=== PATIENT | male | born 1955 | race Caucasian/White ===

== ENCOUNTER 2017-02-04 20:18 | Inpatient (IN) ==
[2017-02-04] MEDS ORDERED: *HR* Morphine 2 MG/ML SYRINGE IVP ONE (20:57)
[2017-02-04] MEDS ORDERED: Ondansetron 4 MG/2 ML VIAL IVP ONE (20:57)
[2017-02-04] MEDS ORDERED: 0.9 % Sodium Chloride 1,000 ML IVC ONE (20:57)
--- NOTE | 2017-02-04 21:00 | Emergency Department Note ---
Disposition Clinical Impression: Abdominal pain Disposition: Still a Patient Referrals: Cj Garcia MD [Primary Care Provider] - Forms: Work/School Release, ED Satisfaction Letter Abdominal Pain HPI - General Chief Complaint: ED Abdominal Pain Stated Complaint: abdominal pain chemo pt prostate ca /to bones Time Seen by Provider: 02/04/17 20:24 Source: patient Mode of arrival: ambulatory Limitations: no limitations Nursing Notes Reviewed: Yes Vital Signs Reviewed: Yes - History of Present Illness HPI Narrative: 61-year-old with a history of stage IV prostate cancer in a process being treated comes in with increasing abdominal pain. States he has severe crampy abdominal pain across his lower abdomen. Pt Subjective Complaint: abdominal pain Onset (ago): day(s) Consistency: intermittent Location: diffuse Pain Severity: moderate, severe Pain Scale: 6 Quality: cramping, aching Radiation: none Migration to: no migration Improves with: nothing Worsens with: nothing - Related Data Home Medications Medication Instructions Recorded Confirmed Omeprazole 20 mg PO DAILY 11/15/16 01/26/17 Polyethylene Glycol 3350 [MiraLAX 1 scoop PO DAILY PRN 01/14/17 01/26/17 Powder Bulk 17.9 Oz] Previous Rx's Medication Instructions Recorded Cyclobenzaprine [Flexeril] 10 mg PO TID PRN #90 tablet 12/15/16 Morphine Sulfate SR (12 HR) [MS 30 mg PO TID #90 tablet.er 12/17/16 Contin] Oxycodone HCl/Acetaminophen 1 each PO Q6H PRN #90 tablet 12/28/16 [Percocet 10-325 mg Tablet] Bicalutamide [Casodex] 50 mg PO DAILY #30 tablet 01/14/17 Calcium Carbonate/Vitamin D3 1 each PO BID #60 tablet 01/14/17 [Calcium 600 + Vit D Tablet] Dexamethasone [Decadron] 2 tab PO BID #60 tablet 01/14/17 Docusate [Colace] 100 mg PO BID #60 capsule 01/14/17 Ondansetron HCl [Zofran] 4 mg PO Q6H PRN #30 tablet 01/14/17 Prochlorperazine Maleate 10 mg PO Q6HR PRN #60 tablet 01/14/17 [Compazine] predniSONE [PredniSONE] 5 mg PO BIDWM #60 tablet 01/14/17 Lidocaine/Prilocaine [Emla] 1 appl TP AD #30 gm 01/26/17 Allergies Allergy/AdvReac Type Severity Reaction Status Date / Time No Known Allergies Allergy Verified 01/26/17 15:55 All systems ED: reviewed and negative except as stated. Constitutional: Denies: fever, chills, weakness, weight change Eyes: Denies: eye pain, eye discharge, vision change ENT ED: Denies: ear pain, throat pain, dental pain, hearing loss, epistaxis, congestion, dysphagia Cardiovascular: Denies: chest pain, palpitations, dyspnea on exertion, edema, syncope Respiratory: Denies: cough, dyspnea, wheezes, hemoptysis, stridor Gastrointestinal: Reports: abdominal pain. Denies: nausea, vomiting, diarrhea, constipation, hematemesis, melena, hematochezia Genitourinary: Denies: urgency, dysuria, frequency, hematuria Musculoskeletal: Denies: back pain, neck pain, arthralgia, myalgia Integumentary: Denies: rash, abrasion, lesions Neurological: Denies: headache, weakness, numbness, paresthesias, confusion, abnormal gait, vertigo Psychiatric: Denies: anxiety, depression, suicidal thoughts, homicidal thoughts , auditory hallucinations, visual hallucinations Endocrine: Denies: fatigue Hematological/Lymphatic: Denies: easy bleeding, easy bruising Allergic/Immunologic: Denies: facial swelling, urticaria Abdominal Pain PMH - Past Medical History Medical history: Reports: other Male Surgical History: Reports: cholecystectomy Psychiatric history: Reports: no psych history - Social History Smoking status: Current every day smoker Alcohol use: Reports: none Drug use: Reports: none Physical Exam - General Limitations: no limitations General appearance: alert, in no apparent distress - Head Head exam: atraumatic, normocephalic, normal inspection - Eye Eye exam: Present: normal appearance, PERRL, EOMI - ENT ENT exam: normal exam, normal oropharynx, mucous membranes moist - Neck Neck exam: Present: normal inspection, full ROM, trachea midline - Chest Chest inspection: Present: normal inspection, symmetric chest wall rise - Respiratory Respiratory exam: Present: normal lung sounds bilaterally - Abdominal Exam Abdominal exam: Present: tenderness. Absent: guarding, rebound - Extremities Exam Extremities exam: Present: normal inspection, full ROM. Absent: tenderness, pedal edema - Expanded Lower Extremity Exam Neurovascular/Tendon exam: Absent: motor deficit, sensory deficit, tendon deficit Gait: observed and normal - Back Exam Back exam: Present: normal inspection - Neurological Exam Neurological exam: Present: alert, oriented X3 - Psychiatric Psychiatric exam: Present: normal affect, normal mood - Skin Skin exam: Present: warm, dry, intact, normal color Course Vital Signs Temperature 97.5 F L 02/04/17 20:19 Pulse Rate 89 02/04/17 20:19 Respiratory Rate 18 02/04/17 20:19 Blood Pressure 126/88 02/04/17 20:19 O2 Sat by Pulse Oximetry 98 02/04/17 20:19 Temperature 97.5 F L 02/04/17 20:19 Pulse Rate 89 02/04/17 20:19 Respiratory Rate 18 02/04/17 20:19 Blood Pressure 126/88 02/04/17 20:19 O2 Sat by Pulse Oximetry 98 02/04/17 20:19 Oxygen Delivery Oxygen Delivery Room Air Abdominal Pain - Lab Data Result diagrams: 02/04/17 21:15 02/04/17 21:15 Lab Results 02/04/17 02/04/17 02/04/17 Range/Units 21:10 21:15 21:15 WBC 1.9 L (4.3-11.1) K/mcL RBC 4.95 (4.19-5.50) M/mcL Hgb 14.7 (12.9-16.9) g/dL Hct 42.5 (37.5-50.1) % MCV 85.9 (83.0-100.0) fL MCH 29.7 (28.0-33.3) pg MCHC 34.6 (31.6-35.5) g/dL RDW 14.1 (11.5-14.5) % Plt Count 151 (140-400) K/mcL MPV 9.4 (9.4-12.4) fL Immature Gran % 7.2 H (0-4) % Seg Neutrophils % 8.8 % Lymphocytes % 39.2 % Monocytes % 42.3 % Eosinophils % 1.0 % Basophils % 1.5 % Neutrophils # 0.2 L (1.6-8.9) K/mcL Lymphocytes # 0.7 (0.6-4.6) K/mcL Monocytes # 0.8 (0.0-1.3) K/mcL Eosinophils # 0.0 (0.0-0.6) K/mcL Basophils # 0.0 (0.0-0.2) K/mcL Sodium 138 (136-145) mEq/L Potassium 3.8 (3.5-4.5) mEq/L Chloride 105 (98-109) mEq/L Carbon Dioxide 24 (19-29) mEq/L BUN 16 (8-26) mg/dL Creatinine 0.79 (0.72-1.25) mg/dL Est GFR ( Amer) > 60 (> 60) Est GFR (Non-Af Amer) > 60 (> 60) BUN/Creatinine Ratio 20 (6-26) Glucose 144 H (70-99) mg/dL Calculated Osmolality 290 (280-300) Lactic Acid (0.5-2.2) mmol/L Calcium 8.4 L (8.6-10.8) mg/dL Total Bilirubin 0.4 (0.2-1.2) mg/dL Direct Bilirubin 0.2 (0.0-0.5) mg/dL Indirect Bilirubin 0.2 (0.0-1.2) mg/dL AST 13 (5-34) Units/L ALT 35 (0-55) Units/L Alkaline Phosphatase 132 H (38-126) Units/L Serum Total Protein 6.4 (6.0-8.3) g/dL Albumin 3.4 L (3.5-5.0) g/dL Globulin 3.0 (2.4-3.5) g/dL Albumin/Globulin Ratio 1.1 (1.1-2.2) Amylase 29 (25-125) Units/L Lipase 5 L (8-78) Units/L Urine Color Yellow (Yellow) Urine Clarity Clear (Clear) Urine pH 6.0 (5.0-8.0) pH Units Ur Specific [place] 1.024 (1.010-1.025) Urine Protein Negative (Neg-Trace) mg/dL Urine Glucose (UA) Normal (Normal) mg/dL Urine Ketones Negative (Negative) mg/dL Urine Blood Negative (Negative) Urine Nitrite Negative (Negative) Urine Bilirubin Negative (Negative) Urine Urobilinogen Normal (Normal) mg/dL Ur Leukocyte Esterase Negative (Negative) Ur Culture Indicated? NO (NO) 02/04/17 Range/Units 21:15 WBC (4.3-11.1) K/mcL RBC (4.19-5.50) M/mcL Hgb (12.9-16.9) g/dL Hct (37.5-50.1) % MCV (83.0-100.0) fL MCH (28.0-33.3) pg MCHC (31.6-35.5) g/dL RDW (11.5-14.5) % Plt Count (140-400) K/mcL MPV (9.4-12.4) fL Immature Gran % (0-4) % Seg Neutrophils % % Lymphocytes % % Monocytes % % Eosinophils % % Basophils % % Neutrophils # (1.6-8.9) K/mcL Lymphocytes # (0.6-4.6) K/mcL Monocytes # (0.0-1.3) K/mcL Eosinophils # (0.0-0.6) K/mcL Basophils # (0.0-0.2) K/mcL Sodium (136-145) mEq/L Potassium (3.5-4.5) mEq/L Chloride (98-109) mEq/L Carbon Dioxide (19-29) mEq/L BUN (8-26) mg/dL Creatinine (0.72-1.25) mg/dL Est GFR ( Amer) (> 60) Est GFR (Non-Af Amer) (> 60) BUN/Creatinine Ratio (6-26) Glucose (70-99) mg/dL Calculated Osmolality (280-300) Lactic Acid 1.2 (0.5-2.2) mmol/L Calcium (8.6-10.8) mg/dL Total Bilirubin (0.2-1.2) mg/dL Direct Bilirubin (0.0-0.5) mg/dL Indirect Bilirubin (0.0-1.2) mg/dL AST (5-34) Units/L ALT (0-55) Units/L Alkaline Phosphatase (38-126) Units/L Serum Total Protein (6.0-8.3) g/dL Albumin (3.5-5.0) g/dL Globulin (2.4-3.5) g/dL Albumin/Globulin Ratio (1.1-2.2) Amylase (25-125) Units/L Lipase (8-78) Units/L Urine Color (Yellow) Urine Clarity (Clear) Urine pH (5.0-8.0) pH Units Ur Specific [place] (1.010-1.025) Urine Protein (Neg-Trace) mg/dL Urine Glucose (UA) (Normal) mg/dL Urine Ketones (Negative) mg/dL Urine Blood (Negative) Urine Nitrite (Negative) Urine Bilirubin (Negative) Urine Urobilinogen (Normal) mg/dL Ur Leukocyte Esterase (Negative) Ur Culture Indicated? (NO) S.B.A.R. - S.B.A.R. Recommendation: Recommendation based on pending studies, treatments, or consults S.B.A.R. Report Given to: Supa CHAIREZ S.B.A.RFior Repor Time: 21:48
[2017-02-04 21:27] LABS: Basophils % 1.5 %
[2017-02-04 21:28] LABS: Hematocrit 42.5 % (37.5-50.1); Hemoglobin 14.7 g/dL (12.9-16.9); Immature Granulocytes % 7.2 % (0-4); Lymphocytes % 39.2 %; Mean Corpuscular HGB Conc 34.6 g/dL (31.6-35.5); Mean Corpuscular Hemoglobin 29.7 pg (28.0-33.3); Mean Corpuscular Volume 85.9 fL (83.0-100.0); Mean Platelet Volume 9.4 fL (9.4-12.4); Monocytes # 0.8 K/mcL (0.0-1.3); Monocytes % 42.3 %; Neutrophils # 0.2 K/mcL (1.6-8.9); Platelet Count 151 K/mcL (140-400); Red Blood Count 4.95 M/mcL (4.19-5.50); Red Cell Distribution Width 14.1 % (11.5-14.5); Segmented Neutrophils % 8.8 %
[2017-02-04 21:29] LABS: Bilirubin,Urine Negative (Negative); Blood,Urine Negative (Negative); Clarity,Urine Clear (Clear); Color,Urine Yellow (Yellow); Glucose,Urine (UA) Normal (Normal); Ketones,Urine Negative (Negative); Leukocyte Esterase,Urine Negative (Negative); Nitrite,Urine Negative (Negative); Protein,Urine Negative (Neg-Trace); Specific Gravity,Urine 1.024 (1.010-1.025); Urobilinogen,Urine Normal (Normal)
[2017-02-04 21:32] LABS: Lymphocytes # 0.7 K/mcL (0.6-4.6)
[2017-02-04 21:42] LABS: Alanine Aminotransferase 35 Units/L (0-55); Albumin 3.4 g/dL (3.5-5.0); Albumin/Globulin Ratio 1.1 (1.1-2.2); Alkaline Phosphatase 132 Units/L (38-126); Amylase 29 Units/L (25-125); Aspartate Amino Transferase 13 Units/L (5-34); BUN/Creatinine Ratio 20 (6-26); Bilirubin,Direct 0.2 mg/dL (0.0-0.5); Bilirubin,Indirect 0.2 mg/dL (0.0-1.2); Bilirubin,Total 0.4 mg/dL (0.2-1.2); Blood Urea Nitrogen 16 mg/dL (8-26); Calcium 8.4 mg/dL (8.6-10.8); Carbon Dioxide 24 mEq/L (19-29); Chloride 105 mEq/L (98-109); Glucose 144 mg/dL (70-99); Lipase 5 Units/L (8-78); Osmolality,Calculated 290 (280-300); Potassium 3.8 mEq/L (3.5-4.5); Sodium 138 mEq/L (136-145); Total Protein 6.4 g/dL (6.0-8.3); eGFR For African Americans > 60 (> 60); eGFR For Non-African Americans > 60 (> 60)
[2017-02-05] MEDS ORDERED: *HR* HYDROmorphone 2 MG/ML SYRINGE IVP ONE (00:28)
--- NOTE | 2017-02-05 01:20 | Emergency Department Note ---
Disposition Clinical Impression: Abdominal pain, Ileus Disposition: Admitted As Inpatient Condition: Fair Instructions: Abdominal Pain (ED) Referrals: Cj Garcia MD [Primary Care Provider] - Forms: ED Satisfaction Letter, Work/School Release Time of Disposition: 01:19 Abdominal Pain HPI - General Chief Complaint: ED Abdominal Pain Stated Complaint: abdominal pain chemo pt prostate ca /to bones Time Seen by Provider: 02/04/17 20:24 Source: patient Mode of arrival: ambulatory - History of Present Illness Pt Subjective Complaint: abdominal pain Location: diffuse Pain Severity: moderate, severe Pain Scale: 0 Quality: cramping, aching Migration to: no migration Improves with: nothing Worsens with: nothing - Related Data Home Medications Medication Instructions Recorded Confirmed Omeprazole 20 mg PO DAILY 11/15/16 01/26/17 Polyethylene Glycol 3350 [MiraLAX 1 scoop PO DAILY PRN 01/14/17 01/26/17 Powder Bulk 17.9 Oz] Previous Rx's Medication Instructions Recorded Cyclobenzaprine [Flexeril] 10 mg PO TID PRN #90 tablet 12/15/16 Morphine Sulfate SR (12 HR) [MS 30 mg PO TID #90 tablet.er 12/17/16 Contin] Oxycodone HCl/Acetaminophen 1 each PO Q6H PRN #90 tablet 12/28/16 [Percocet 10-325 mg Tablet] Bicalutamide [Casodex] 50 mg PO DAILY #30 tablet 01/14/17 Calcium Carbonate/Vitamin D3 1 each PO BID #60 tablet 01/14/17 [Calcium 600 + Vit D Tablet] Dexamethasone [Decadron] 2 tab PO BID #60 tablet 01/14/17 Docusate [Colace] 100 mg PO BID #60 capsule 01/14/17 Ondansetron HCl [Zofran] 4 mg PO Q6H PRN #30 tablet 01/14/17 Prochlorperazine Maleate 10 mg PO Q6HR PRN #60 tablet 01/14/17 [Compazine] predniSONE [PredniSONE] 5 mg PO BIDWM #60 tablet 01/14/17 Lidocaine/Prilocaine [Emla] 1 appl TP AD #30 gm 01/26/17 Allergies Allergy/AdvReac Type Severity Reaction Status Date / Time No Known Allergies Allergy Verified 01/26/17 15:55 Constitutional: Denies: fever, chills, weakness, weight change Eyes: Denies: eye pain, eye discharge, vision change ENT ED: Denies: ear pain, throat pain, dental pain, hearing loss, epistaxis, congestion, dysphagia Cardiovascular: Denies: chest pain, palpitations, dyspnea on exertion, edema, syncope Respiratory: Denies: cough, dyspnea, wheezes, hemoptysis, stridor Gastrointestinal: Reports: abdominal pain. Denies: nausea, vomiting, diarrhea, constipation, hematemesis, melena, hematochezia Genitourinary: Denies: urgency, dysuria, frequency, hematuria Musculoskeletal: Denies: back pain, neck pain, arthralgia, myalgia Integumentary: Denies: rash, abrasion, lesions Neurological: Denies: headache, weakness, numbness, paresthesias, confusion, abnormal gait, vertigo Psychiatric: Denies: anxiety, depression, suicidal thoughts, homicidal thoughts , auditory hallucinations, visual hallucinations Endocrine: Denies: fatigue Hematological/Lymphatic: Denies: easy bleeding, easy bruising Allergic/Immunologic: Denies: facial swelling, urticaria Abdominal Pain PMH - Past Medical History Medical history: Reports: other Male Surgical History: Reports: cholecystectomy Psychiatric history: Reports: no psych history - Social History Smoking status: Current every day smoker Alcohol use: Reports: none Drug use: Reports: none Physical Exam - General Limitations: no limitations General appearance: alert, in no apparent distress Course - Consultations Consultation #1: Patient has a significant amount of wall thickening in the terminal ileum, this was discussed with the radiologist over the phone by myself. No evidence of significant small bowel obstruction, however patient has not had any emesis throughout course of stay and is still fluctuant. Pain is currently controlled. I discussed admission with Dr. Mendez, and we agreed that based on the patient's current status surgery does not need to be consult it until the morning or if his symptoms worsen. Patient will be admitted for pain management and nausea control. Surgery will be consult in the morning for further evaluation. Vital signs currently within normal limits, patient in no acute distress. Time: 01:19 Vital Signs Temperature 97.5 F L 02/04/17 20:19 Pulse Rate 89 02/04/17 20:19 Respiratory Rate 18 02/04/17 20:19 Blood Pressure 126/88 02/04/17 20:19 O2 Sat by Pulse Oximetry 98 02/04/17 20:19 Temperature 97.5 F L 02/04/17 20:19 Pulse Rate 73 02/05/17 01:00 Respiratory Rate 20 02/05/17 01:00 Blood Pressure 141/94 02/05/17 01:00 O2 Sat by Pulse Oximetry 97 02/05/17 01:00 Oxygen Delivery Oxygen Delivery Room Air Abdominal Pain - Lab Data Result diagrams: 02/04/17 21:15 02/04/17 21:15 Lab Results 02/04/17 02/04/17 02/04/17 Range/Units 21:10 21:15 21:15 WBC 1.9 L (4.3-11.1) K/mcL RBC 4.95 (4.19-5.50) M/mcL Hgb 14.7 (12.9-16.9) g/dL Hct 42.5 (37.5-50.1) % MCV 85.9 (83.0-100.0) fL MCH 29.7 (28.0-33.3) pg MCHC 34.6 (31.6-35.5) g/dL RDW 14.1 (11.5-14.5) % Plt Count 151 (140-400) K/mcL MPV 9.4 (9.4-12.4) fL Immature Gran % 7.2 H (0-4) % Seg Neutrophils % 8.8 % Lymphocytes % 39.2 % Monocytes % 42.3 % Eosinophils % 1.0 % Basophils % 1.5 % Neutrophils # 0.2 L (1.6-8.9) K/mcL Lymphocytes # 0.7 (0.6-4.6) K/mcL Monocytes # 0.8 (0.0-1.3) K/mcL Eosinophils # 0.0 (0.0-0.6) K/mcL Basophils # 0.0 (0.0-0.2) K/mcL Sodium 138 (136-145) mEq/L Potassium 3.8 (3.5-4.5) mEq/L Chloride 105 (98-109) mEq/L Carbon Dioxide 24 (19-29) mEq/L BUN 16 (8-26) mg/dL Creatinine 0.79 (0.72-1.25) mg/dL Est GFR ( Amer) > 60 (> 60) Est GFR (Non-Af Amer) > 60 (> 60) BUN/Creatinine Ratio 20 (6-26) Glucose 144 H (70-99) mg/dL Calculated Osmolality 290 (280-300) Lactic Acid (0.5-2.2) mmol/L Calcium 8.4 L (8.6-10.8) mg/dL Total Bilirubin 0.4 (0.2-1.2) mg/dL Direct Bilirubin 0.2 (0.0-0.5) mg/dL Indirect Bilirubin 0.2 (0.0-1.2) mg/dL AST 13 (5-34) Units/L ALT 35 (0-55) Units/L Alkaline Phosphatase 132 H (38-126) Units/L Serum Total Protein 6.4 (6.0-8.3) g/dL Albumin 3.4 L (3.5-5.0) g/dL Globulin 3.0 (2.4-3.5) g/dL Albumin/Globulin Ratio 1.1 (1.1-2.2) Amylase 29 (25-125) Units/L Lipase 5 L (8-78) Units/L Urine Color Yellow (Yellow) Urine Clarity Clear (Clear) Urine pH 6.0 (5.0-8.0) pH Units Ur Specific [place] 1.024 (1.010-1.025) Urine Protein Negative (Neg-Trace) mg/dL Urine Glucose (UA) Normal (Normal) mg/dL Urine Ketones Negative (Negative) mg/dL Urine Blood Negative (Negative) Urine Nitrite Negative (Negative) Urine Bilirubin Negative (Negative) Urine Urobilinogen Normal (Normal) mg/dL Ur Leukocyte Esterase Negative (Negative) Ur Culture Indicated? NO (NO) 02/04/17 Range/Units 21:15 WBC (4.3-11.1) K/mcL RBC (4.19-5.50) M/mcL Hgb (12.9-16.9) g/dL Hct (37.5-50.1) % MCV (83.0-100.0) fL MCH (28.0-33.3) pg MCHC (31.6-35.5) g/dL RDW (11.5-14.5) % Plt Count (140-400) K/mcL MPV (9.4-12.4) fL Immature Gran % (0-4) % Seg Neutrophils % % Lymphocytes % % Monocytes % % Eosinophils % % Basophils % % Neutrophils # (1.6-8.9) K/mcL Lymphocytes # (0.6-4.6) K/mcL Monocytes # (0.0-1.3) K/mcL Eosinophils # (0.0-0.6) K/mcL Basophils # (0.0-0.2) K/mcL Sodium (136-145) mEq/L Potassium (3.5-4.5) mEq/L Chloride (98-109) mEq/L Carbon Dioxide (19-29) mEq/L BUN (8-26) mg/dL Creatinine (0.72-1.25) mg/dL Est GFR ( Amer) (> 60) Est GFR (Non-Af Amer) (> 60) BUN/Creatinine Ratio (6-26) Glucose (70-99) mg/dL Calculated Osmolality (280-300) Lactic Acid 1.2 (0.5-2.2) mmol/L Calcium (8.6-10.8) mg/dL Total Bilirubin (0.2-1.2) mg/dL Direct Bilirubin (0.0-0.5) mg/dL Indirect Bilirubin (0.0-1.2) mg/dL AST (5-34) Units/L ALT (0-55) Units/L Alkaline Phosphatase (38-126) Units/L Serum Total Protein (6.0-8.3) g/dL Albumin (3.5-5.0) g/dL Globulin (2.4-3.5) g/dL Albumin/Globulin Ratio (1.1-2.2) Amylase (25-125) Units/L Lipase (8-78) Units/L Urine Color (Yellow) Urine Clarity (Clear) Urine pH (5.0-8.0) pH Units Ur Specific [place] (1.010-1.025) Urine Protein (Neg-Trace) mg/dL Urine Glucose (UA) (Normal) mg/dL Urine Ketones (Negative) mg/dL Urine Blood (Negative) Urine Nitrite (Negative) Urine Bilirubin (Negative) Urine Urobilinogen (Normal) mg/dL Ur Leukocyte Esterase (Negative) Ur Culture Indicated? (NO)
--- NOTE | 2017-02-05 02:53 | Internal Med History&Physical ---
Date of Encounter: 02/05/17 Time of Encounter: 02:53 Assessment and Plan (1) Ileus Current visit: Yes Status: Acute pt with a history of bone metastasis from advanced prostate cancer on opioids for pain management comes in with signs and symptoms concerning for partial bowel obstruction, he is found to have ileus on diagnostic imaging, the etiology could be from the opiates vs mechanical from tumor, we will admit for management and get surgery to weigh in, NPO for now, we advised patient about the need to pass an NGT to decompress the bowel but he declined, we will do IVF , pain management, enemas (2) GERD (gastroesophageal reflux disease) Current visit: Yes Status: Chronic will continue PPI Qualifiers: Esophagitis presence: without esophagitis Qualified Code(s): K21.9 - Gastro -esophageal reflux disease without esophagitis (3) Abdominal pain Current visit: Yes Status: Acute per ileus section Qualifiers: Abdominal location: left lower quadrant Qualified Code(s): R10.32 - Left lower quadrant pain (4) Prostate cancer metastatic to bone Current visit: Yes Status: Chronic he is scheduled to have a port placed on the of this month to begin chemotherapy, we will defer further management to his oncologist Internal Medicine - H&P: HPI Chief complaint: abdominal pain Admitted From: Emergency Dept Plans for Post Hospital Care: Home History of present illness: Mr. Lowery is a 61 year old male with a history of recently diagnosed metastatic prostate cancer to the bone being prepared for chemotherapy on opioids for pain management was brought in for abdominal pain. He was in his usual state of health until at around 3pm on 02/04/17 when whilst watching TV he started experiencing abdominal pain. It was crampy in character, located in the left lower quadrant. The pain initially lasted for about an hour and a half, it was 10/10 in severity with no radiation. It was made worse with touching and ameliorated by lying still or intentional guarding. The pain went away for a while and later came back, each time the pain free intervals got shorter until he was rushed to the ER. He denies any prior episodes, he reports that he has been constipated since 02/03/17, he has also been unable to pass gas, he has nausea(ongoing for 2-3 months now) but has not vomited. In the ER of [place] CT abdomen and pelvis was suggestive of an ileus. He is being admitted for further management. 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 lives with , has 2 boys ages 30 and 21 Family hx: Father: alive, diabetes, heart disease Mother: alive, Hypertension, heart disease, diabetes Past Med Surg Social Fam HX - Past Medical History Medical history: other Psychiatric history: no psych history - Past Surgical History Surgical History: cholecystectomy, herniorrhaphy, other - Social History Smoking Status: Current every day smoker Smokeless Tobacco Status: No Alcohol use: none Drug use: none - Family History Mother Adopted: No Family Member Ethnicity: Non- Living Status: Still Living Hx Family Cardiac Disorders: Yes (mother pacemaker) Hx Family Respiratory Disorders: Yes (dad asthma) Hx Family Cancer: No Hx Family GI Disorders: No Hx Family Genitourinary Disorders: No Hx Family Endocrine Disorder: No Hx Family Musculoskeletal Disorders: No Hx Family Neuromuscular Disorders: No Hx Family Neurologic Disorders: No Hx Family HEENT Disorders: No Hx Family Autoimmune Disorders: No Hx Family Reproductive Disorders: No Hx Family Psychosocial Disorders: No Hx Family Medical Disorders: No Internal Medicine - H&P: Meds Omeprazole 20 mg PO DAILY 11/15/16 [History] Cyclobenzaprine [Flexeril] 10 mg PO TID PRN #90 tablet 12/15/16 [Rx] Morphine Sulfate SR (12 HR) [MS Contin] 30 mg PO TID #90 tablet.er 12/17/16 [Rx] Oxycodone HCl/Acetaminophen [Percocet 10-325 mg Tablet] 1 each PO Q6H PRN #90 tablet 12/28/16 [Rx] Bicalutamide [Casodex] 50 mg PO DAILY #30 tablet 01/14/17 [Rx] Calcium Carbonate/Vitamin D3 [Calcium 600 + Vit D Tablet] 1 each PO BID #60 tablet 01/14/17 [Rx] Dexamethasone [Decadron] 2 tab PO BID #60 tablet 01/14/17 [Rx] Docusate [Colace] 100 mg PO BID #60 capsule 01/14/17 [Rx] Ondansetron HCl [Zofran] 4 mg PO Q6H PRN #30 tablet 01/14/17 [Rx] Polyethylene Glycol 3350 [MiraLAX Powder Bulk 17.9 Oz] 1 scoop PO DAILY PRN [History] Prochlorperazine Maleate [Compazine] 10 mg PO Q6HR PRN #60 tablet 01/14/17 [Rx] predniSONE [PredniSONE] 5 mg PO BIDWM #60 tablet 01/14/17 [Rx] Lidocaine/Prilocaine [Emla] 1 appl TP AD #30 gm 01/26/17 [Rx] Allergies No Known Allergies Allergy (Verified 01/26/17 15:55) All Systems PM: A 10-system review of systems was performed and is negative for pertinent findings except as documented above in the HPI. - Constitutional Vitals: Temp Pulse Resp BP Pulse Ox 97.5 F L 73 20 137/94 97 02/04/17 20:19 02/05/17 01:00 02/05/17 01:41 02/05/17 01:41 02/05/17 01:00 PHYSICAL EXAMINATION: GENERAL: Adult male, lying in bed, looks unwell and uncomfortable, Alert, HEENT: NC/AT, EOMI, PERRLA, anicteric sclera, normal conjunctiva, supple, clear nares, dry mucous membranes, clear oropharynx, RESP: lungs are clear to auscultation bilaterally, good AE bilaterally, No crackles or wheeze CARDIO: Normal hearts sounds; S1 and 2, RRR with no murmurs, no JVD, no ankle edema GI: Soft, full, generalized tenderness but worse in the left lower quadrant with guarding, no organomegaly felt, bowel sounds heard MUSCULOSKELETAL: grossly normal movements bilaterally, no deformities noted, no calf tenderness NEUROLOGIC: CN 2-12 intact grossly. No motor/sensory deficit appreciated, PSYCHIATRY: AAO x 3. Mood is fair, SKIN: no skin rash or ulcers noted Internal Med - H&P Results - Labs CBC & Chem 7: 02/04/17 21:15 02/04/17 21:15 - Diagnostic Studies CT scan - abdomen Status: image reviewed by me
[2017-02-05] MEDS ORDERED: Naloxone 0.4 MG/ML INJ IVP PRN (03:19)
[2017-02-05] MEDS ORDERED: Ondansetron 4 MG/2 ML VIAL IVP PRN (03:19)
[2017-02-05] MEDS ORDERED: Milk and Molasses Enema 200 ML RC ONE (03:22)
[2017-02-05] MEDS ORDERED: Bisacodyl 10 MG RECTAL SUPPOSITORY RC PRN (03:22)
[2017-02-05] MEDS ORDERED: Metoclopramide 10 MG/2 ML VIAL IVP PRN (03:22)
[2017-02-05] MEDS: *HR* Morphine 2 MG/ML SYRINGE IVP PRN ×2 (03:44→08:11)
[2017-02-05] MEDS: Ringers Solution, Lactated 1,000 ML IVC SCH ×2 (03:55→17:26)
[2017-02-05] MEDS: Ondansetron 4 MG/2 ML VIAL IVP SCH ×2 (05:21→11:57)
[2017-02-05 05:26] LABS: Hematocrit 46.2 % (37.5-50.1); Hemoglobin 15.7 g/dL (12.9-16.9); Mean Corpuscular Hemoglobin 29.3 pg (28.0-33.3); Mean Corpuscular Volume 86.4 fL (83.0-100.0); Mean Platelet Volume 9.2 fL (9.4-12.4); Platelet Count 146 K/mcL (140-400); Red Blood Count 5.35 M/mcL (4.19-5.50)
[2017-02-05 05:41] LABS: BUN/Creatinine Ratio 20 (6-26); Blood Urea Nitrogen 15 mg/dL (8-26); Calcium 8.2 mg/dL (8.6-10.8); Carbon Dioxide 25 mEq/L (19-29); Chloride 106 mEq/L (98-109); Glucose 143 mg/dL (70-99); Osmolality,Calculated 289 (280-300); Phosphorous 2.6 mg/dL (2.3-4.7); Potassium 4.3 mEq/L (3.5-4.5); Sodium 138 mEq/L (136-145); eGFR For African Americans > 60 (> 60); eGFR For Non-African Americans > 60 (> 60)
[2017-02-05] MEDS ORDERED: *HR* HYDROmorphone (PF) 1 MG/ML SYRINGE IVP ONE (06:46)
[2017-02-05] MEDS: Bicalutamide 50 MG TABLET PO SCH (07:58)
[2017-02-05] MEDS: *HR* Heparin 5,000 UNIT/ML VIAL SQ SCH ×2 (08:04→16:20)
[2017-02-05] MEDS ORDERED: Bisacodyl 10 MG RECTAL SUPPOSITORY RC SCH (09:00)
[2017-02-05] MEDS ORDERED: *HR* Morphine 2 MG/ML SYRINGE IVP PRN (10:58)
[2017-02-05] MEDS ORDERED: Bisacodyl 10 MG RECTAL SUPPOSITORY RC ONE (11:27)
[2017-02-05] MEDS: Ondansetron 4 MG/2 ML VIAL IVP PRN ×2 (16:17→20:19)
[2017-02-06] MEDS: *HR* Heparin 5,000 UNIT/ML VIAL SQ SCH ×2 (00:55→07:59)
[2017-02-06] MEDS: Ringers Solution, Lactated 1,000 ML IVC SCH (04:50)
[2017-02-06 07:35] VITALS: BP 137/87
[2017-02-06] MEDS: Bicalutamide 50 MG TABLET PO SCH (07:59)
--- NOTE | 2017-02-06 09:40 | Discharge Summary ---
Date of Encounter: 02/06/17 Time of Encounter: 09:38 - Discharge Diagnosis (1) Abdominal pain Priority: Primary Status: Acute Qualifiers: Abdominal location: left lower quadrant Qualified Code(s): R10.32 - Left lower quadrant pain (2) Ileitis Priority: Primary Status: Acute (3) Constipation due to opioid therapy Priority: Primary Status: Acute (4) Prostate cancer metastatic to bone Priority: Secondary Status: Chronic (5) Fatigue Priority: Secondary Status: Chronic Qualifiers: Fatigue type: due to neoplasm Qualified Code(s): R53.0 - Neoplastic ( malignant) related fatigue - Discharge Medications Home Medications: Omeprazole 20 mg PO DAILY 11/15/16 [History] Cyclobenzaprine [Flexeril] 10 mg PO TID PRN #90 tablet 12/15/16 [Rx] Morphine Sulfate SR (12 HR) [MS Contin] 30 mg PO TID #90 tablet.er 12/17/16 [Rx] Bicalutamide [Casodex] 50 mg PO DAILY #30 tablet 01/14/17 [Rx] Calcium Carbonate/Vitamin D3 [Calcium 600 + Vit D Tablet] 1 each PO BID #60 tablet 01/14/17 [Rx] Dexamethasone [Decadron] 2 tab PO BID #60 tablet 01/14/17 [Rx] Docusate [Colace] 100 mg PO BID #60 capsule 01/14/17 [Rx] Polyethylene Glycol 3350 [MiraLAX Powder Bulk 17.9 Oz] 17 gm PO DAILY PRN [History] Prochlorperazine Maleate [Compazine] 10 mg PO Q6HR PRN #60 tablet 01/14/17 [Rx] predniSONE [PredniSONE] 5 mg PO BIDWM #60 tablet 01/14/17 [Rx] Lidocaine/Prilocaine [Emla] 1 appl TP AD #30 gm 01/26/17 [Rx] Ondansetron HCl [Zofran] 8 mg PO Q8H PRN 02/05/17 [History] Oxycodone HCl/Acetaminophen [Percocet 10-325 mg Tablet] 1 tab PO Q6H PRN [History] Allergies/Adverse Reactions: Allergies No Known Allergies Allergy (Verified 01/26/17 15:55) Date of admission: 02/05/17 03:19 Primary care physician: Cj Garcia MD - Patient Status Disposition: Home, Self-Care Condition: Good Functional capacity at discharge: independent ambulation Overall status at discharge: patient is progressing back to baseline - Discharge Instructions Follow Up With: Cj Garcia MD [Primary Care Provider] - Additional Instructions: please drink plenty of fluids and keep yourself hydrated follow up with primary care doctor next week - Diet and Activity Activity: resume usual activities as tolerated Diet: regular diet Interval History: Patient denies any abdominal pain. He ate all his diet. He is eager to go home. Hospital course: Mr. Lowery is a 61 year old male with past medical history of metastatic prostate cancer to the bones, GERD and tobacco use who presented with a chief complaint of abdominal pain. CT of the abdomen and pelvis reveals significant wall thickening and inflammation involving the terminal ileum with associated obstruction or ileus of the upstream small bowel, slightly prominent but small right lower quadrant mesenteric lymph nodes, pelvic internal iliac lymphadenopathy has reduced in size, multiple new and increased sclerotic metastases involving the axial skeleton most compatible with progression of metastatic disease. Likely etiology of ileitis is virus vs radiation induced. Patient was started on supportive therapy with IV fluids, pain control and laxatives with clinical resolution of his abdominal pain. He was ambulating and eating well at discharge. He is still had pain due to his bone metastasis but it was well controlled with pain medications. Lung: Patient instructed to drink plenty of fluids. He will follow-up with his primary care doctor next week. He needs a repeat CBC. - Time Spent with Patient Total time spent providing and/or coordinating discharge services: - Constitutional Vitals: Temp Pulse Resp BP Pulse Ox 98.0 F 71 16 137/87 93 02/06/17 07:31 02/06/17 07:31 02/06/17 07:31 02/06/17 07:31 02/06/17 07:31 General appearance: Present: cooperative, A&O X 3, pleasant, no acute distress, answers questions appropriately - Respiratory Respiratory exam: Present: CTAB - Cardiovascular Cardiovascular exam: Present: RRR - GI/Abdominal GI/Abdominal exam: Present: normal bowel sounds, soft. Absent: distended, tenderness - Extremities Exam Extremities exam: Absent: pedal edema - Back Exam Back exam: Absent: CVA tenderness (L), CVA tenderness (R) - Neurological Exam Neurological exam: Present: alert, oriented X3, no focal deficits, strengths equal and symetr throughout. Absent: facial droop, speech deficit - Skin Skin exam: Absent: rash
== END 2017-02-06 10:05 | disposition home or self-care (01) | DRG 392 ==
LOC: EMEROO 20:18 → 3NENU 20:18 → SUATTDRO 02-05 03:19
PROVIDERS: ADMIT Internal Medicine; ATTEND Internal Medicine

== ENCOUNTER 2017-06-27 06:08 | Inpatient (IN) ==
--- NOTE | 2017-06-26 21:09 | Discharge Summary ---
<Rosario Oviedo L - Last Filed: 06/26/17 21:19> Date of Encounter: 06/26/17 - Discharge Diagnosis (1) Status post total hip replacement, right Priority: Primary Status: Acute (2) Arthritis of hip Priority: Primary Status: Acute (3) Bony metastasis Priority: Primary Status: Chronic (4) Tobacco use Priority: Secondary Status: Acute (5) Prostate cancer Priority: Secondary Status: Chronic (6) Chronic pain Priority: Secondary Status: Chronic Comments: Plan to resume chronic pain medications. OARRS reviewed. - Discharge Medications Home Medications: Omeprazole 20 mg PO DAILY 11/15/16 [History] Calcium Carbonate/Vitamin D3 [Calcium 600 + Vit D Tablet] 1 each PO BID #60 tablet 01/14/17 [Rx] Docusate [Colace] 100 mg PO BID #60 capsule 01/14/17 [Rx] Polyethylene Glycol 3350 [MiraLAX Powder Bulk 17.9 Oz] 17 gm PO DAILY PRN [History] Prochlorperazine Maleate [Compazine] 10 mg PO Q6HR PRN #60 tablet 01/14/17 [Rx] Lidocaine/Prilocaine [Emla] 1 appl TP AD #30 gm 01/26/17 [Rx] Ondansetron HCl [Zofran] 8 mg PO Q8H PRN 02/05/17 [History] Magic Mouthwash 5 ml PO Q4H PRN #240 ml 02/23/17 [Rx] Oxycodone HCl/Acetaminophen [Percocet 10-325 mg Tablet] 1 tab PO Q6H PRN #90 tablet 03/07/17 [Rx] Lactulose [Enulose] 15 ml PO BID PRN #300 mls 04/22/17 [Rx] predniSONE [PredniSONE] 5 mg PO BIDWM #60 tablet 04/22/17 [Rx] Cyclobenzaprine [Flexeril] 10 mg PO TID PRN #90 tablet 05/13/17 [Rx] Morphine Sulfate SR (12 HR) [MS Contin] 30 mg PO TID #90 tablet.er 06/14/17 [Rx] Gabapentin [Neurontin] 300 mg PO TID 06/23/17 [History] Aspirin Enteric Coated [Aspirin EC] 325 mg PO DAILY #21 tablet. 06/26/17 [Rx] Allergies/Adverse Reactions: 3 Allergy/AdvReac Type Severity Reaction Status Date / Time No Known Allergies Allergy Verified 06/27/17 06:41 Primary care physician: Cj Garcia MD - Patient Status Disposition: Home, Self-Care Condition: Good - Discharge Instructions Follow Up With: Cj Garcia MD [Primary Care Provider] - - Hospital Course Hospital course: Mr. Lowery is a 61 year old male - Time Spent with Patient Total time spent providing and/or coordinating discharge services: <Colin Laurent - Last Filed: 06/27/17 13:43> Date of Encounter: 06/27/17 Time of Encounter: 13:43 - Discharge Diagnosis (1) Constipation due to opioid therapy Priority: Secondary Status: Chronic (2) Knowledge deficit on chemotherapy Priority: Secondary Status: Chronic (3) GERD (gastroesophageal reflux disease) Priority: Secondary Status: Chronic Qualifiers: Esophagitis presence: without esophagitis Qualified Code(s): K21.9 - Gastro -esophageal reflux disease without esophagitis (4) Depression Priority: Secondary Status: Chronic Qualifiers: Depression Type: other depression Qualified Code(s): F32.89 - Other specified depressive episodes (5) Tobacco use Priority: Secondary Status: Chronic (6) Chronic pain Priority: Secondary Status: Chronic Qualifiers: Chronic pain type: other chronic pain Qualified Code(s): G89.29 - Other chronic pain (7) Status post total hip replacement, right Priority: Primary Status: Acute (8) Prostate cancer metastatic to bone Priority: Primary Status: Chronic Comments: Metastatic disease right hip (9) Fatigue Priority: Secondary Status: Chronic Qualifiers: Fatigue type: due to neoplasm Qualified Code(s): R53.0 - Neoplastic ( malignant) related fatigue (10) Pain in right lower leg Priority: Secondary Status: Chronic Primary care physician: Cj Garcia MD - Patient Status Overall status at discharge: patient is progressing back to baseline - Hospital Course Hospital course: Mr. Lowery is a 61 year old male Status post right total hip replacement patient discharged home same day - Time Spent with Patient Total time spent providing and/or coordinating discharge services:
--- NOTE | 2017-06-27 06:26 | History & Physical Report ---
Date of Encounter: 06/27/17 Time of Encounter: 06:26 24 Hour HP Update - Instructions Instructions: If the History and Physical is less than 30 days old and was completed prior to A.M. admission and or procedure and has NOT been updated on calendar day of procedure please complete this update prior to performing procedure. - Update Patient reports changes in Medical Condition: No Changes in examination, assessment, or condition: No Changes in Medication: No Preop tests/diagnostics Reviewed: Yes Surgery Remains Indicated: Yes Consent for Planned Operative Procedure(s) Verified: Yes - Pre-Operative Checklist Preoperative Checklist Indicated: No Prophylactic Antibiotic Ordered: Yes Is VTE Prophylaxis Indicated?: Yes
[2017-06-27] MEDS ORDERED: Albuterol 2.5 MG/3 ML NEBULIZER IH ONE ×2 (06:30→07:56)
[2017-06-27] MEDS ORDERED: Ringers Solution, Lactated 1,000 ML IVC SCH ×3 (06:30→10:24)
[2017-06-27] MEDS ORDERED: CeFAZolin Pre 2,000 MG/100 ML 2,000 MG/100 ML BAG IVPB ONE (06:30)
--- NOTE | 2017-06-27 06:57 | Anesthesia Evaluation PreOp ---
Date of Encounter: 06/27/17 Time of Encounter: 06:55 - Past History Planned Operation: Right Total Hip Cardiac History: Denies any Significant Hx Pulmonary History: Smoker, Pack/yr (1 ppd), DESMOND Dx (Refuses to wear CPAP) EVS TECH History: Other (Anxiety/Depression) Other Medical History: GERD, Other (RA, Prostate Ca, Bone CA, Right LE edema) Anesthesia History: No Prior Anesthetic Complications, Past Anesthesia (Left Ing. hernia, Melchor Knee, GB, Left elbow, left shoulder) Alcohol Use: none Drug use: none Medications and Allergies Omeprazole 20 mg PO DAILY 11/15/16 [History] Calcium Carbonate/Vitamin D3 [Calcium 600 + Vit D Tablet] 1 each PO BID #60 tablet 01/14/17 [Rx] Docusate [Colace] 100 mg PO BID #60 capsule 01/14/17 [Rx] Polyethylene Glycol 3350 [MiraLAX Powder Bulk 17.9 Oz] 17 gm PO DAILY PRN [History] Prochlorperazine Maleate [Compazine] 10 mg PO Q6HR PRN #60 tablet 01/14/17 [Rx] Lidocaine/Prilocaine [Emla] 1 appl TP AD #30 gm 01/26/17 [Rx] Ondansetron HCl [Zofran] 8 mg PO Q8H PRN 02/05/17 [History] Magic Mouthwash 5 ml PO Q4H PRN #240 ml 02/23/17 [Rx] Oxycodone HCl/Acetaminophen [Percocet 10-325 mg Tablet] 1 tab PO Q6H PRN #90 tablet 03/07/17 [Rx] Lactulose [Enulose] 15 ml PO BID PRN #300 mls 04/22/17 [Rx] predniSONE [PredniSONE] 5 mg PO BIDWM #60 tablet 04/22/17 [Rx] Cyclobenzaprine [Flexeril] 10 mg PO TID PRN #90 tablet 05/13/17 [Rx] Morphine Sulfate SR (12 HR) [MS Contin] 30 mg PO TID #90 tablet.er 06/14/17 [Rx] Gabapentin [Neurontin] 300 mg PO TID 06/23/17 [History] Aspirin Enteric Coated [Aspirin EC] 325 mg PO DAILY #21 tablet. 06/26/17 [Rx] 3 Allergy/AdvReac Type Severity Reaction Status Date / Time No Known Allergies Allergy Verified 06/27/17 06:41 - Meds/Allergy Pre-op Review Medications Reviewed: Yes Allergies Reviewed: Yes Beta Blockers on Current Med List: No Anesthesia Results - Labs Laboratory Tests 02/11/17 06/24/17 06/24/17 07:33 13:23 13:23 WBC 5.4 Hgb 14.6 Hct 43.4 INR 1.0 Sodium 138 Potassium 3.8 Chloride 104 Carbon Dioxide 25 BUN 19 Creatinine 0.80 Anesthesia Exam O2 Sat Height 1.83 m Height 1.83 m Height 1.83 m Weight 99.337 kg Weight 99.337 kg Weight 99.337 kg O2 Sat by Pulse Oximetry 98 Vital Signs Temp Pulse Resp BP Pulse Ox 97.6 F 99 18 147/98 98 06/27/17 06:26 06/27/17 06:26 06/27/17 06:26 06/27/17 06:26 06/27/17 06:26 Height: 6' Weight: 219# NPO (# of Hours): > 8 hrs Pain Scale: 0 Pain Scale Used: Numeric (1 - 10) - HEENT Pupil (Motor): Pupils equal, EOMI Mallampati: III Teeth: Normal Oral Opening: Greater than 3 - EVS TECH LOC: Oriented EVS TECH Motor: Normal RUE, Normal LUE, Normal RLE, Normal LLE, Normal Face EVS TECH Sensory: Normal: RUE, LUE, RLE, LLE, Face - Cardiac Rhythm: Regular Murmur: None JVD: No Carotid Bruit: No - Pulmonary Breath Sounds: bilateral Clear Respiratory Effort: Symmetrical Anesthesia Assess/Plan ASA Score: 3 Modified Raul Scale for Level of Consciousness: Cooperative, oriented, and tranquil Anesthetic Plan: General Autologous Blood: Yes Monitoring Plan: Standard Monitors Recovery Plan: PACU
[2017-06-27] MEDS ORDERED: *HR* Midazolam HCl 2 MG/2 ML VIAL ONE (06:58)
[2017-06-27] MEDS ORDERED: *HR* Propofol 200 MG/20 ML VIAL IVP ONE (06:58)
[2017-06-27] MEDS ORDERED: *HR* FentaNYL (PF) 100 MCG/2 ML VIAL ONE (06:58)
[2017-06-27] MEDS ORDERED: *HR* Phenylephrine 10 MG/ML VIAL ONE (06:59)
[2017-06-27] MEDS ORDERED: Lidocaine -MPF 2% 2 ML VIAL ONE (06:59)
[2017-06-27] MEDS ORDERED: *HR* Rocuronium Bromide 50 MG/5 ML VIAL ONE (06:59)
[2017-06-27] MEDS ORDERED: Lidocaine -MPF 4% 5 ML AMPUL ONE (06:59)
[2017-06-27] MEDS ORDERED: *HR* HYDROmorphone 2 MG/ML SYRINGE ONE (06:59)
[2017-06-27] MEDS ORDERED: *HR* Succinylcholine 200 MG/10 ML VIAL IVP ONE (06:59)
[2017-06-27] MEDS ORDERED: EPHEDrine 50 MG/ML VIAL ONE (07:03)
[2017-06-27] MEDS ORDERED: Ethanol\\Acetic Acid\\Na Ace\\Ben 1,000 ML IRRIG.SOLN IR ONE (07:27)
[2017-06-27 07:35] LABS: Prothrombin Time 10.2 Seconds (9.4-12.1)
[2017-06-27 07:38] LABS: Activated Partial Thrombo Time 28.3 Seconds (26.0-36.0)
[2017-06-27] MEDS ORDERED: Ondansetron 4 MG/2 ML VIAL ONE (07:55)
[2017-06-27] MEDS ORDERED: Dexamethasone 4 MG/ML VIAL ONE (07:55)
[2017-06-27] MEDS ORDERED: *HR* Meperidine 25 MG/ML SYRINGE IVP PRN (07:56)
[2017-06-27] MEDS ORDERED: Naloxone 0.4 MG/ML INJ IVP PRN ×2 (07:56→10:24)
[2017-06-27] MEDS ORDERED: Ondansetron 4 MG/2 ML VIAL IVP ONE (07:56)
--- NOTE | 2017-06-27 08:42 | Orthopedic Operative Note ---
Date of procedure: 06/27/17 Pre-op diagnosis: Metastatic right hip disease Post-op diagnosis: same (Degenerative arthritis right hip) Procedure: Procedure: Right Total Hip Replacment Estimated blood loss: 500 cc Hardware: Metal and polyethylene replacement. Biomet DM Cup: 58G7 fin cup Femoral size13 echo full profile lateralized stem Head: 6 head with Pari Procedural Notes: Grade 4 arthritic changes femoral head acetabular socket. Operative procedure: The patient was brought to the operating room and placed on the operating room table. After general anesthesia was administered the patient was placed in the lateral decubitus position with the operative leg up. All pressure points were padded appropriately and the head was stabilized in the neutral position. The operative extremity was prepped and draped in the sterile surgical fashion patient received IV antibiotic prior to skin incision. A standard posterior approach is made to the operative hip, the incision was made through the skin and subcutaneous tissue hemostasis was obtained with Bovie cautery. Using careful sharp dissection the fascia was identified and incised exposing the external rotators. The external rotators were released off the greater trochanter and tagged with #2 FiberWire suture. The capsule was T'd open and the hip was brought into internal rotation. Patient noted to have grade 4 arthritic changes femoral head. The femoral neck cut was made at the appropriate level. An anterior capsulotomy was performed for the anterior retractor. Soft tissues removed from the acetabulum. Patient noted to have grade 4 arthritic changes acetabulum. Acetabulum was first reamed medially, and then reamed in 15 degrees of anteversion and 45 degrees off the horizontal. It was reamed up to the appropriate size58. The appropriate-sized 58 acetabular cup was impacted in place in 15 degrees of anteversion and 45 degrees off the horizontal. This had good fit and fixation. The hip was brought back in to internal rotation and prepared with the dust box worker followed by the canal finder followed by broaching process in 20 degrees anteversion. It was broached up to the appropriate size 13. The femoral implant was impacted in place in 20 degrees of anteversion. Trial reduction found the hip to be stable with 6 head and Pari. The trials were removed and the real implants were impacted in place. The hip was reduced, patient had apparent equal leg lengths. The hip had excellent stability with forward flexion to 90 degrees adduction of 30 degrees and internal rotation of 60 degrees. The hip had no shuck. The hips after 2 minutes with a Betadine saline solution. It was irrigated out with 2 L of pulse irrigation. The PA closed the hip. Fascia was closed with a running #2 PDS suture. The deep tissue was irrigated and closed deep with #1 PDS suture superficially with 0 PDS suture and skin was closed with Dermabond and skin nimesh. The patient was placed in a sterile dressing and abduction pillow. The patient was extubated and transferred to the recovery room in stable condition. Anesthesia: GETA Surgeon: Colin Laurent Condition: stable Disposition: PACU
[2017-06-27] MEDS: *HR* Labetalol 20 MG/4 ML SYRINGE IVP PRN ×2 (09:19→09:34)
[2017-06-27] MEDS: *HR* HYDROmorphone (PF) 1 MG/ML SYRINGE IVP PRN ×2 (09:21→09:30)
[2017-06-27 09:43] LABS: Hematocrit 39.7 % (37.5-50.1); Hemoglobin 13.2 g/dL (12.9-16.9)
--- NOTE | 2017-06-27 09:45 | Anesthesia Evaluation Post Op ---
Date of Encounter: 06/27/17 Time of Encounter: 09:45 - Vital Signs Vital Signs: Vital Signs/O2 Sat, Most Current Temp Pulse Resp BP Pulse Ox 98.1 F 78 10 149/95 99 06/27/17 09:41 06/27/17 09:41 06/27/17 09:41 06/27/17 09:41 06/27/17 09:41 - Lungs Lungs: Clear Ascult./Percussion - Airway Airway: Non-obstructed - Cardiovascular Regular Rate - Mental Status Mental Status: Alert & Oriented, Answers Appropriately - Pain Pain Scale: 0 (Sleeping) Pain Scale used: Numeric (1 - 10) - Nausea Vomiting Nausea Vomiting: Not Present - Hydration Hydration: Ice chips, Has not voided - Discharge PostOp Status: Transfer Patient to floor
[2017-06-27] MEDS ORDERED: Temazepam 15 MG CAPSULE PO PRN (10:24)
[2017-06-27] MEDS ORDERED: Polyethylene Glycol 3350 255 GM POWDER PO PRN (10:24)
[2017-06-27] MEDS ORDERED: *HR* HYDROmorphone (PF) 1 MG/ML SYRINGE IVP PRN (10:24)
[2017-06-27] MEDS ORDERED: Multivit/Ca/Min/Fe/FA 1 TAB TABLET PO SCH (10:24)
[2017-06-27] MEDS ORDERED: ONDANSETRON HCL 8 MG PO PRN (10:24)
[2017-06-27] MEDS ORDERED: NON-FORMULARY MEDICATION 1 EACH EACH (Calcium Carbonate/Vitamin D3 [Calcium 600 + Vit D Ta PO SCH (10:24)
[2017-06-27] MEDS ORDERED: *HR* OxyCODONE/APAP 10/325 TABLET PO SCH (10:24)
[2017-06-27] MEDS ORDERED: MOM Conc 10 ML UD.LIQ PO PRN (10:24)
[2017-06-27] MEDS ORDERED: LACTULOSE PO PRN (10:24)
[2017-06-27] MEDS ORDERED: *HR* Morphine Sulfate SR (12 HR) 30 MG TABLET.ER PO SCH ×2 (10:24→15:00)
[2017-06-27] MEDS ORDERED: Sennosides 8.6 MG TABLET PO PRN (10:24)
[2017-06-27] MEDS ORDERED: Magic Mouthwash 10 ML UD Cup PO PRN (10:24)
[2017-06-27] MEDS ORDERED: Ondansetron 4 MG/2 ML VIAL IVP PRN (10:24)
[2017-06-27] MEDS ORDERED: *HR* OxyCODONE Immed Rel 5 MG TABLET PO PRN ×2 (11:08)
[2017-06-27] MEDS ORDERED: Acetaminophen 325 MG TABLET PO PRN (11:08)
[2017-06-27] MEDS: predniSONE 5 MG TABLET PO SCH ×2 (11:26→16:23)
[2017-06-27] MEDS: Ascorbic Acid 500 MG TABLET PO SCH ×2 (11:26→16:23)
[2017-06-27 13:29] VITALS: BP 147/90
[2017-06-27] MEDS ORDERED: Gabapentin 300 MG CAPSULE PO SCH (15:00)
[2017-06-27] MEDS ORDERED: ceFAZolin 2,000 MG in D5% in Water 100 ML IVPB SCH (15:00)
[2017-06-27] MEDS ORDERED: *HR* Enoxaparin 30 MG/0.3 ML SYRINGE SQ SCH ×2 (18:00)
--- NOTE | 2017-06-27 21:10 | Electrocardiograph Report ---
[place] [facility] Test Date: 2017-06-27 Pat Name: Hunter Lowery Department: 106 Room: [facility] Gender: M Recovery Manager: ELIOT : 1955 Requested By: Wilmar Patricio Order Number: [id number] Reading MD: Aleksandr Hawk MD Measurements Intervals [place] Rate: 88 P: 61 [place]: 154 QRS: 7 QRSD: 92 T: 39 QT: 361 QTc: 406 Interpretive Statements SINUS RHYTHM Electronically Signed On 06-27-2017 21:08:08 EDT by Aleksandr Hawk MD
[2017-06-28] MEDS ORDERED: Cholecalciferol (D-3) 1,000 UNIT TABLET PO SCH (09:00)
== END 2017-06-27 17:41 | disposition home or self-care (01) | DRG 470 ==
LOC: SAMDAY 06:08 → 3NENU 10:04
PROVIDERS: ADMIT Orthopaedic Surgery; ATTEND Orthopaedic Surgery

== ENCOUNTER 2019-07-14 21:56 | Observation (INO) ==
[2019-07-14] MEDS ORDERED: *HR* HYDROmorphone (PF) 1 MG/ML SYRINGE IVP ONE (22:03)
[2019-07-14 22:50] LABS: Basophils % 0.2 %; Eosinophils % 0.2 %; Hematocrit 30.3 % (37.5-50.1); Hemoglobin 9.4 g/dL (12.9-16.9); Immature Granulocytes % 0.7 % (0-4); Lymphocytes # 0.6 K/mcL (0.6-4.6); Lymphocytes % 10.5 %; Mean Corpuscular Hemoglobin 26.5 pg (28.0-33.3); Mean Corpuscular Volume 85.4 fL (83.0-100.0); Mean Platelet Volume 9.8 fL (9.4-12.4); Monocytes % 17.7 %; Neutrophils # 4.2 K/mcL (1.6-8.9); Platelet Count 229 K/mcL (140-400); Red Blood Count 3.55 M/mcL (4.19-5.50); Red Cell Distribution Width 17.8 % (11.5-14.5); Segmented Neutrophils % 70.7 %; White Blood Count 5.9 K/mcL (4.3-11.1)
[2019-07-14 23:07] LABS: Alanine Aminotransferase 11 Units/L (7-52); Albumin 3.5 g/dL (3.5-5.7); Albumin/Globulin Ratio 1.4 (1.1-2.2); Alkaline Phosphatase 98 Units/L (34-104); Aspartate Amino Transferase 12 Units/L (13-39); BUN/Creatinine Ratio 34 (6-26); Bilirubin,Direct 0.3 mg/dL (0.0-0.2); Bilirubin,Indirect 0.6 mg/dL (0.0-1.2); Bilirubin,Total 0.9 mg/dL (0.3-1.0); Blood Urea Nitrogen 19 mg/dL (8-23); Calcium 8.7 mg/dL (8.6-10.3); Carbon Dioxide 24 mEq/L (23-29); Chloride 98 mEq/L (98-107); Globulin 2.5 g/dL (2.4-3.5); Glucose 125 mg/dL (70-105); Lipase < 3 Units/L (11-82); Osmolality,Calculated 276 (280-300); Sodium 131 mEq/L (136-145); eGFR For African Americans > 60 (> 60); eGFR For Non-African Americans > 60 (> 60)
[2019-07-15 00:36] LABS: Bilirubin,Urine Small (Negative); Blood,Urine Moderate (Negative); Clarity,Urine Cloudy (Clear); Color,Urine Dark Yellow (Yellow); Glucose,Urine (UA) Normal (Normal); Ketones,Urine Trace mg/dL (Negative); Leukocyte Esterase,Urine Negative (Negative); Nitrite,Urine Negative (Negative); PH,Urine 7.5 pH Units (5.0-8.0); Protein,Urine 30 mg/dL (Neg-Trace); Specific Gravity,Urine 1.026 (1.010-1.025); Urobilinogen,Urine Normal (Normal)
[2019-07-15 00:37] LABS: Hyaline Casts,Urine None Seen per lpf (None-Few); RBC,Urine 30-50 per hpf (0-3); WBC,Urine 0-3 per hpf (0-3)
[2019-07-15 00:48] LABS: Bacteria,Urine Moderate per hpf (None-Few); Squamous Epithelial Cell,Urine Few per lpf (None-Few)
[2019-07-15] MEDS ORDERED: *HR* HYDROmorphone (PF) 1 MG/ML SYRINGE IVP ONE (01:36)
[2019-07-15] MEDS ORDERED: Naloxone 0.4 MG/ML INJ IVP PRN (06:02)
[2019-07-15] MEDS: *HR* HYDROmorphone (PF) 1 MG/ML SYRINGE IVP PRN ×2 (06:22→10:28)
[2019-07-15 07:09] LABS: Hematocrit 28.6 % (37.5-50.1); Hemoglobin 9.1 g/dL (12.9-16.9); Mean Corpuscular HGB Conc 31.8 g/dL (31.6-35.5); Mean Corpuscular Hemoglobin 26.8 pg (28.0-33.3); Mean Corpuscular Volume 84.4 fL (83.0-100.0); Mean Platelet Volume 9.6 fL (9.4-12.4); Platelet Count 210 K/mcL (140-400); Red Blood Count 3.39 M/mcL (4.19-5.50); Red Cell Distribution Width 17.9 % (11.5-14.5); White Blood Count 6.1 K/mcL (4.3-11.1)
[2019-07-15 07:29] LABS: BUN/Creatinine Ratio 31 (6-26); Blood Urea Nitrogen 17 mg/dL (8-23); Calcium 8.7 mg/dL (8.6-10.3); Carbon Dioxide 26 mEq/L (23-29); Chloride 99 mEq/L (98-107); Glucose 116 mg/dL (70-105); Osmolality,Calculated 279 (280-300); Potassium 4.1 mEq/L (3.5-5.1); Sodium 133 mEq/L (136-145); eGFR For African Americans > 60 (> 60); eGFR For Non-African Americans > 60 (> 60)
[2019-07-15] MEDS ORDERED: *HR* HYDROmorphone (PF) 1 MG/ML SYRINGE IVP PRN ×2 (11:43→15:53)
[2019-07-15] MEDS ORDERED: Morphine Sulfate Immed Rel 30 MG TABLET PO PRN ×2 (11:43→15:54)
[2019-07-15] MEDS ORDERED: *HR* HYDROmorphone 20 MG/20 ML PCA IVC PRN (13:13)
[2019-07-15] MEDS ORDERED: 0.9 % Sodium Chloride 1,000 ML ONE (16:15)
[2019-07-15] MEDS: *HR* Heparin 5,000 UNIT/ML VIAL SQ SCH (18:12)
[2019-07-16 04:41] LABS: Basophils % 0.2 %; Eosinophils % 0.4 %; Hematocrit 28.5 % (37.5-50.1); Hemoglobin 8.6 g/dL (12.9-16.9); Immature Granulocytes % 0.9 % (0-4); Lymphocytes # 0.7 K/mcL (0.6-4.6); Lymphocytes % 12.8 %; Mean Corpuscular HGB Conc 30.2 g/dL (31.6-35.5); Mean Corpuscular Hemoglobin 26.4 pg (28.0-33.3); Mean Corpuscular Volume 87.4 fL (83.0-100.0); Mean Platelet Volume 9.7 fL (9.4-12.4); Monocytes # 0.8 K/mcL (0.0-1.3); Monocytes % 14.8 %; Neutrophils # 3.8 K/mcL (1.6-8.9); Platelet Count 210 K/mcL (140-400); Red Blood Count 3.26 M/mcL (4.19-5.50); Red Cell Distribution Width 17.5 % (11.5-14.5); Segmented Neutrophils % 70.9 %; White Blood Count 5.3 K/mcL (4.3-11.1)
[2019-07-16 05:00] LABS: BUN/Creatinine Ratio 30 (6-26); Blood Urea Nitrogen 16 mg/dL (8-23); Calcium 8.5 mg/dL (8.6-10.3); Carbon Dioxide 26 mEq/L (23-29); Chloride 100 mEq/L (98-107); Glucose 115 mg/dL (70-105); Osmolality,Calculated 282 (280-300); Potassium 3.9 mEq/L (3.5-5.1); Sodium 135 mEq/L (136-145); eGFR For African Americans > 60 (> 60); eGFR For Non-African Americans > 60 (> 60)
[2019-07-16] MEDS: *HR* Heparin 5,000 UNIT/ML VIAL SQ SCH (05:10)
[2019-07-16 11:10] VITALS: BP 126/78
[2019-07-16] MEDS ORDERED: Bisacodyl 10 MG RECTAL SUPPOSITORY RC ONE (11:48)
[2019-07-16 14:30] LABS: Hematocrit 30.6 % (37.5-50.1)
[2019-07-17] MEDS ORDERED: *HR* FentaNYL PATCH 100 MCG PATCH TD SCH (09:00)
== END 2019-07-16 15:03 | disposition left against medical advice (07) ==
LOC: EMEROOARM 21:56 → 3ANU 21:56 → SUATTDRO 07-15 02:16 → 3ANU 07-15 03:08
PROVIDERS: ADMIT Family Medicine; ATTEND Internal Medicine